=== PATIENT | female | born 1955 | race Caucasian/White ===

== ENCOUNTER → 2016-11-29 | Outpatient (CLI) | payer OTHER ==
--- NOTE | 2016-11-29 10:23 | RADIOLOGY REPORT (SQ) ---
EXAM DESCRIPTION: MRI CERVICAL SPINE WITHOUT COMPLETED DATE/TIME: 11/29/2016 8:24 am REASON FOR STUDY: CERVICAL RADICULOPATHY (M54.12) M54.12 RADICULOPATHY, CERVICAL REGION M54.6 PAIN IN THORACIC SPINE COMPARISON: None. TECHNIQUE: Sagittal and Axial imaging includes T1, T2, STIR and gradient echo sequences. LIMITATIONS: None. FINDINGS: ALIGNMENT: Normal. VERTEBRAE: Intact. BONE MARROW: Normal. No marrow replacement or reactive changes. DISCS: Decreased height and signal. HARDWARE: None in the spine. CORD AND BASE OF BRAIN: Normal in size and signal intensity. SOFT TISSUES: No soft tissue masses. C1-C2: No significant spinal stenosis. C2-C3: No significant spinal stenosis or exit foraminal stenosis. C3-C4: Mild diffuse posterior disc and osteophyte. Mild spinal stenosis and possible minimal right e xit foraminal stenosis. C4-C5: Diffuse posterior disc and osteophyte and uncovertebral spurring. Mild spinal stenosis and mi ld-moderate exit foraminal stenosis, worse on the left. C5-C6: Mild diffuse posterior disc and osteophyte. Mild spinal stenosis and possible mild exit soni inal stenosis. C6-C7: Mild posterior disc and osteophyte and uncovertebral spurring. Mild spinal stenosis and mild -moderate exit foraminal stenosis, worse on the left. C7-T1: No significant spinal stenosis or exit foraminal stenosis. UPPER THORACIC: Incompletely imaged. No significant spinal stenosis or exit foraminal stenosis. OTHER: No other significant finding. IMPRESSION: MULTILEVEL CHRONIC DEGENERATIVE CHANGES DESCRIBED ABOVE. TECHNICAL DOCUMENTATION: JOB ID: [id number] [employer]- All Rights Reserved
--- NOTE | 2016-11-29 10:27 | RADIOLOGY REPORT (SQ) ---
EXAM DESCRIPTION: MRI THORACIC SPINE WITHOUT COMPLETED DATE/TIME: 11/29/2016 8:25 am REASON FOR STUDY: PAIN IN T SP (M54.6) M54.12 RADICULOPATHY, CERVICAL REGION M54.6 PAIN IN THORACI C SPINE COMPARISON: None. TECHNIQUE: Sagittal and Axial imaging includes T1, T2, STIR and gradient echo sequences. LIMITATIONS: None. FINDINGS: LOCALIZER: No worrisome findings. ALIGNMENT: Scoliosis, convex to the right. VERTEBRAE: Intact. BONE MARROW: Normal. No marrow replacement or reactive changes. HARDWARE: None in the spine. CORD: Normal in size and signal intensity. SOFT TISSUES: No soft tissue masses. THORACIC DISCS T1-T12: Minimal posterior disc bulge and facet arthropathy at several levels in the th oracic spine. No spinal stenosis or significant exit foraminal stenosis. No impingement of the cord . LOWER CERVICAL: Incompletely imaged. No significant spinal stenosis or exit foraminal stenosis. UPPER LUMBAR: Incompletely imaged. No significant spinal stenosis or exit foraminal stenosis. OTHER: No other significant finding. IMPRESSION: PROMINENT SCOLIOSIS, CONVEX TO THE RIGHT. MILD DEGENERATIVE DISC DISEASE AND FACET ARTH ROPATHY. NO ACUTE FINDINGS. NO SIGNIFICANT STENOSIS OR IMPINGEMENT. TECHNICAL DOCUMENTATION: JOB ID: [id number] [employer]- All Rights Reserved
== END ==
LOC: RAD 07:00
PROVIDERS: ATTEND Physician Assistant
DX: M54.12 Radiculopathy, cervical region (principal); M54.6 Pain in thoracic spine
CPT/HCPCS: 72141; 72146

== ENCOUNTER → 2018-02-15 | Outpatient (CLI) | payer OTHER ==
--- NOTE | 2018-02-16 10:09 | RADIOLOGY REPORT (SQ) ---
EXAM DESCRIPTION: MRI CERVICAL SPINE WITHOUT COMPLETED DATE/TIME: 02/15/2018 4:42 pm REASON FOR STUDY: OTHER CERVICAL DISC DEGENERATION, UNSP CERVICAL REGION M50.30 OTHER CERVICAL DISC DEGENERATION, UNSP CERVICAL REGIO COMPARISON: MRI cervical spine 11/29/2016 TECHNIQUE: Sagittal and Axial imaging includes T1, T2, STIR and gradient echo sequences. LIMITATIONS: None. FINDINGS: ALIGNMENT: Straightening of cervical curvature VERTEBRAE: Intact. BONE MARROW: Normal. No marrow replacement or reactive changes. DISCS: Diffuse decreased T2 weighted intervertebral disc signal. Disc space loss of height from C3-4 through C6-7. HARDWARE: None in the spine. CORD AND BASE OF BRAIN: Normal in size and signal intensity. SOFT TISSUES: No soft tissue masses. C1-C2: No significant spinal stenosis. C2-C3: No significant spinal stenosis or exit foraminal stenosis. C3-C4: Broad diffuse posterior disc bulge and bony spurring is present, effacing the ventral thecal s ac and abutting the ventral cord without cord flattening. No abnormal intrinsic cord signal. Mild s table central canal stenosis. There is moderate bilateral foraminal narrowing. C4-C5: Broad diffuse posterior disc bulge and bony spurring left greater than right partially effaces the ventral thecal sac and abuts the ventral cord without cord flattening or abnormal intrinsic cord signal. Mild central canal narrowing. Asymmetric left-sided facet and uncovertebral hypertrophy ca uses high-grade left foraminal narrowing. Moderate right foraminal narrowing. C5-C6: Mild diffuse posterior disc bulge and bony spurring without significant central canal narrowin g. Mild bilateral foraminal narrowing from facet and uncovertebral hypertrophy C6-C7: Broad diffuse posterior disc bulge and bony spurring is present without significant central ca nal stenosis. Mild right, moderate left foraminal narrowing from facet and uncovertebral hypertrophy . C7-T1: No significant spinal stenosis or exit foraminal stenosis. UPPER THORACIC: Incompletely imaged. No significant spinal stenosis or exit foraminal stenosis. OTHER: No other significant finding. IMPRESSION: Stable multilevel degenerative disc changes with multilevel foraminal narrowing. Mild c entral canal narrowing C3-4 and C4-5, stable TECHNICAL DOCUMENTATION: JOB ID: [id number]- All Rights Reserved Reading location - IP/workstation name: [email or web address]
== END ==
LOC: RAD 16:11
PROVIDERS: ATTEND Physician Assistant
DX: M50.30 Other cervical disc degeneration, unspecified cervical region (principal)
CPT/HCPCS: 72141

== ENCOUNTER → 2020-03-04 | Outpatient (CLI) | payer MEDICARE, OTHER ==
--- NOTE | 2020-03-04 11:28 | RADIOLOGY REPORT (SQ) ---
EXAM DESCRIPTION: MRI LUMBAR SPINE WITHOUT IMAGES COMPLETED DATE/TIME: 03/04/2020 9:10 am REASON FOR STUDY: M54.5 LOW BACK PAIN M54.5 LOW BACK PAIN COMPARISON: None. TECHNIQUE: Sagittal and Axial imaging includes T1, T2, STIR and gradient echo sequences. Coronal T2/ HASTE imaging. LIMITATIONS: None. FINDINGS: VISUALIZED UPPER ABDOMEN: Left renal cyst. SEGMENTATION: No transitional anatomy. The lowest well-developed disc space is labeled L5-S1. ALIGNMENT: Serpiginous thoracolumbar curvature with levoconvex lumbar curvature. VERTEBRAE: Intact. BONE MARROW: No evidence of marrow replacement. Multilevel endplate change with acute and chronic en dplate changes at T11-T12 with mild endplate edema. DISC SIGNAL: Multilevel disc desiccation and height loss as detailed below. POSTERIOR ELEMENTS: Generally intact. No evidence of fracture or dislocation. No definite pars def ect. Multilevel facet arthropathy. HARDWARE: None in the spine. CORD AND CONUS: Normal in size and signal intensity. Conus medullaris terminates at L2. SOFT TISSUES: No aortic aneurysm seen. No bulky retroperitoneal adenopathy or mass. No paraspinal mas s or fluid. L1-L2: No significant spinal stenosis or exit foraminal stenosis. L2-L3: Disc desiccation and height loss with small posterior disc bulge. No high-grade spinal canal stenosis. There is moderate neural foraminal narrowing bilaterally secondary to disc and facet disea se L3-L4: Disc desiccation and height loss with circumferential disc bulge causing lateral recess narrow ing and contact the traversing nerve roots. Moderate right and [id number] left neural foramina l narrowing secondary to disc and facet disease. L4-L5: Disc desiccation and height loss with circumferential disc bulge. There is effacement of the CSF column and moderate to severe spinal canal stenosis secondary to disc bulge and ligamentum flavum and facet hypertrophy. Severe right and moderate to severe left neural foraminal narrowing secondar y to disc and facet disease. L5-S1: Disc desiccation height loss with circumferential disc bulge. No high-grade spinal canal sten osis. Moderate right and moderate to severe left neural foraminal narrowing secondary to disc and fa cet disease. LOWER THORACIC: Incompletely imaged. No stenosis seen. SACRUM: Visualized upper sacrum intact. Bone island within the right sacrum. OTHER: No other significant findings. IMPRESSION: 1. No evidence of acute bony abnormality of the lumbar spine. 2. Multilevel degenerative change greatest at L4-5 with moderate to severe spinal canal stenosis sec ondary to disc and facet disease. Associated severe right and moderate to severe left neural foramin al narrowing at that level. Additional level specific findings as detailed above. 3. Significant serpiginous thoracolumbar spinal curvature with associated multilevel degenerative ch abdifatah. Acute and chronic endplate change at T11-12 with mild endplate edema. TECHNICAL DOCUMENTATION: JOB ID: [id number] [employer]- All Rights Reserved Reading location - IP/workstation name: [email or web address]
== END ==
LOC: RAD 08:28
PROVIDERS: ATTEND Physician Assistant
DX: M51.87 Other intervertebral disc disorders, lumbosacral region (principal); M54.5 Low back pain
CPT/HCPCS: 72148